=== PATIENT | male | born 1940 ===

== ENCOUNTER 2019-10-01 08:43 | Outpatient (CLI) | payer MEDICARE, SELFPAY ==
[2019-09-23 11:08] VITALS: BMI 25.8
--- NOTE | ~2019-10-01 | XR_ITS ---
EXAMINATION: XR lumbar spine min 4V EXAM DATE: 10/01/2019 11:09 INDICATION: Spondylolisthesis at L4-5. TECHNIQUE: Lumber spine frontal, lateral, lateral L5-S1 projections for interpretation. Additional l ateral flexion and lateral extension projections obtained. FINDINGS: There is 2-3 mm retrolisthesis of L1 on L2, about 2 mm retrolisthesis L2 on L3, about 3 mm retrolisthesis L3 on L4 and 3 mm anterolisthesis L5 on S1 on the lateral projections. Difficult to ap preciate significant interval change between flexion and extension images. Severe left-sided lower humberto mbar facet arthropathy. Large right-sided bridging endplate osteophytes at the L2-3 level. There is m oderate lumbar levoscoliosis. Moderate to severe disc disease L2-3 and L3-4, moderate at the other humberto mbar levels. Mild to moderate scattered aortoiliac arterial sclerosis. Sacrum, sacroiliac joints, sac ral arcuate lines are intact. IMPRESSION: 1. Moderate lumbar levoscoliosis. 2. Advanced disc disease, left-sided lower lumbar facet arthropathy as above. Reviewed, dictated and finalized at location A. 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
--- NOTE | ~2019-10-01 | XR_ITS ---
EXAMINATION: XR myelogram spine lumbosacral EXAM DATE: 10/01/2019 11:56 INDICATION: Low back pain. Radiculopathy. TECHNIQUE: Informed consent was obtained from the patient for doing this procedure. I discussed miguel ángel efits and risks including bleeding, infection, backache, headache. Alternatives also discussed. The D AP for this procedure was 3.6 Gycm2. Time out procedure was performed. 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 An entry site was chosen at the L3 -4 level. A left paracentral approach was used. Standard sterile prep was done with Betadine. Entr y site was infiltrated with 3 cc 1% lidocaine. A 3.5 22G spinal needle was advanced several times u nsuccessfully. L5-S1 level was also prepped at same time, and attempt at this level was made and infiltrated with re maining 2 cc of 1% lidocaine. Access was achieved and 14 milliliters Omnipaque 180 was then injected into the thecal sac. Frontal, lateral and oblique fluoroscopic images were then acquired. The patient was then transferre d to CT scan for spiral CT of the lumbar spine. Following this, patient was placed in postoperative area for 2 hours observation prior to being discharged. There were no immediate complications. FINDINGS: There are 12 thoracic rib-bearing vertebral bodies and 5 lumbar vertebral bodies. There is good intrathecal opacification, no myelographic block. There is moderate lumbar levoscoliosis and ene dence of advanced disc disease. IMPRESSION: 1. Moderate lumbar levoscoliosis and advanced disc disease. 2. Successful intrathecal injection of contrast for CT lumbar spine subsequently performed. Reviewed, dictated and finalized at location A. 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 Moderate lumbar levoscoliosis and advanced disc disease. 2. Successful intrathecal injection of contrast for CT lumbar spine subsequentl y performed.
--- NOTE | ~2019-10-01 | CT_ITS ---
EXAMINATION: CT lumbar spine w con EXAM DATE: 10/01/2019 11:51 INDICATION: Radiculopathy L4-5. Lumbar spondylosis. TECHNIQUE: Spiral CT of the lumbar spine was performed following intrathecal injection of 14 mL Omnip aque 180 solution. Axial, coronal and sagittal images were reviewed. The dose-length product (DLP) for this examination was 704.50 mGy-cm. The exposure was tailored according to patient size (auto m A exposure control), and iterative reconstruction (ASIR) was used as additional dose reduction techni que. Correlation is made to lumbar spine MRI examination 09/08/2019 from [facility] facility. FINDINGS: There is good intrathecal opacification and no myelographic block. The conus terminates at the T12-L1 level. There is moderate lumbar levoscoliosis centered at the L2 level. There is moderate to severe disc disease at L2-3 and L3-4, moderate disc disease at L1-2, L4-5 and L5-S1. Vacuum disc p henomenon at L1-2, L3-4, L4-5 and L5-S1. There is no spondylolysis. Sclerosis at the endplates of the L2-3 level. Mild loss of vertebral body heights from L1-L4 levels. There is 2-3 mm retrolisthesis L1 on L2 and L2 on L3, 2-3 mm anterolisthesis L5 on S1. There are no a cute fractures identified. 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 Mild to moderate scattered abdominal aortic arterial sclerosis. Mild to moderate sigmoid diverticulosis. Para spinal soft tissue is otherwise unremarkable. Level by level evaluation: T10-11: There is a mild diffuse disc bulge. Facet arthropathy: Mild. Neural foraminal stenosis: Not imaged. Central canal stenosis: Mild. T11-12: Disc does not extend beyond the endplate margin. Facet arthropathy: Minimal. Neural foraminal stenosis: No stenosis. Central canal stenosis: No stenosis. T12-L1: There is a minimal diffuse disc bulge. Facet arthropathy: Minimal. Neural foraminal stenosis: No stenosis. Central canal stenosis: No stenosis. L1-L2: There is a mild diffuse disc bulge. Facet arthropathy: Mild. Neural foraminal stenosis: Mild left. Central canal stenosis: Minimal. L2-L3: There is a mild to moderate diffuse disc bulge. Facet arthropathy: Mild to moderate left, moderate right. Neural foraminal stenosis: Mild to moderate right, minimal left. Central canal stenosis: Mild. L3-L4: There is a moderate diffuse disc bulge. Facet arthropathy: Moderate. Neural foraminal stenosis: Mild to moderate right, mild left. Central canal stenosis: Mild to moderate. L4-L5: There is a mild to moderate diffuse disc bulge. Facet arthropathy: Severe left, moderate right. Neural foraminal stenosis: Mild to moderate left, mild right. Central canal stenosis: Mild to moderate. L5-S1: There is a mild to moderate diffuse disc bulge. Facet arthropathy: Severe left, moderate right. Neural foraminal stenosis: Moderate to severe left, mild right. Central canal stenosis: Mild. No appreciable interval change correlating to prior MRI examination from last month. IMPRESSION: 1. Moderate mid lumbar levoscoliosis. 2. Advanced lumbar disc disease. 3. Left L5-S1 neural foramina most narrowed on exam. Reviewed, dictated and finalized at location A. 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
[2019-10-01 09:10] LABS: Mean Platelet Volume 9.8 fl (7.4-10.4); Platelet Count Result 234 k/mm3 (150-375)
[2019-10-01 09:22] LABS: INR 0.9; Prothrombin Time 11.7 Seconds (11.1-14.7)
[2019-10-01 11:54] VITALS: BP 146/81; PULSE 58; RESP 16; O2SAT 96
[2019-10-01 11:55] VITALS: BP 143/69; BP 146/72; PULSE 56; RESP 15; O2SAT 96; O2SAT 98
--- NOTE | 2019-10-01 12:34 | SUR.PHASEII ---
pt doing well, tolerating liquids, no n/v
--- NOTE | 2019-10-01 13:09 | SUR.PHASEII ---
[id number] dr montelongo came and saw the pt and is ok to be discharged after his 2 hours
[2019-10-01 13:30] VITALS: BP 127/65; PULSE 55
--- NOTE | 2019-10-01 14:29 | SUR.PHASEII ---
[id number] left message that pt forgot discharge instructions and if they have any questions or concerns they can call us
== END 2019-10-01 14:00 | disposition home or self-care (01) ==
LOC: ANHSURGERY 08:51
PROVIDERS: Radiology Diagnostic Radiology; Visit Provider Neurological Surgery
DX: M43.16 Spondylolisthesis, lumbar region (principal); M47.26 Other spondylosis with radiculopathy, lumbar region; M12.88 Other specific arthropathies, not elsewhere classified, other specified site; M41.86 Other forms of scoliosis, lumbar region
CPT/HCPCS: 36415; 62304; 72110; 72132; 85049; 85610